=== PATIENT | female | born 1950 | race Caucasian/White ===

== ENCOUNTER 2017-03-30 17:03 | Emergency (ER) | payer OTHER ==
[~2017-03-30] VITALS: Wt 79.4 kg
[~2017-03-30 17:03] MED LIST: ASPIRIN ADULT L81 M1 PO; CIPROFLOXACIN500 MG PO; DULE1ARO PO; DULOXETINE HCL60 MG PO; LIDOCAINE HCL INH; MEDROL DOSEPAK4 MG PO; METOZOLV ODT5 MG PO; MOTRIN800 MG PO; NORFLEX100 MG PO; NOVAPLUS V0.09 MG/Ac INH; OMEPRAZOLE40 MG PO; PREDNISONE20 MG PO; TIZANIDINE HCL2 MG PO; TYLENOL ARTHRI650 MG PO; TYLENOL W/CODEI1 TA2; TYLENOL WITH CO1 TAB; VALSARTAN80 MG PO; VICODIN 500 MG-1 TAB PO; VICODIN ES 7501 TAB PO
[2017-03-30] MEDS ORDERED: CEFADROXIL500 M1 PO (17:37)
== END 2017-03-30 17:53 | disposition home or self-care (01) ==
LOC: ED 17:03
DX: S90.464A Insect bite (nonvenomous), right lesser toe(s), initial encounter (principal); L03.031 Cellulitis of right toe; Z91.041 Radiographic dye allergy status; Z88.6 Allergy status to analgesic agent; Z79.82 Long term (current) use of aspirin; Z79.899 Other long term (current) drug therapy; W57.XXXA Bitten or stung by nonvenomous insect and other nonvenomous arthropods, initial encounter; Y93.9 Activity, unspecified; Y92.9 Unspecified place or not applicable; Y99.9 Unspecified external cause status

== ENCOUNTER 2017-12-25 10:19 | Emergency (ER) | payer OTHER ==
[~2017-12-25] VITALS: Ht 167.6 cm; Wt 79.4 kg
[~2017-12-25 10:19] MED LIST changes: +CEFADROXIL500 M1 PO
[2017-12-25] MEDS ORDERED: LAMISIL AT12 GM T (10:38)
== END 2017-12-25 10:45 | disposition home or self-care (01) ==
LOC: ED 10:19
DX: B37.2 Candidiasis of skin and nail (principal); R03.0 Elevated blood-pressure reading, without diagnosis of hypertension; Z98.890 Other specified postprocedural states; Z90.49 Acquired absence of other specified parts of digestive tract; Z79.899 Other long term (current) drug therapy; Z91.041 Radiographic dye allergy status; Z88.5 Allergy status to narcotic agent; Z79.82 Long term (current) use of aspirin

== ENCOUNTER 2020-08-21 19:36 | Emergency (ER) | payer MEDICARE ==
[~2020-08-21] VITALS: Ht 167.6 cm; Wt 79.4 kg
[~2020-08-21 19:36] MED LIST changes: +LAMISIL AT12 GM T
== END 2020-08-21 22:19 | disposition home or self-care (01) ==
LOC: ED 19:36
DX: S90.32XA Contusion of left foot, initial encounter (principal); I10 Essential (primary) hypertension; F32.9 Major depressive disorder, single episode, unspecified; F41.9 Anxiety disorder, unspecified; K21.9 Gastro-esophageal reflux disease without esophagitis; M79.7 Fibromyalgia; Z98.890 Other specified postprocedural states; Z91.041 Radiographic dye allergy status; Z88.6 Allergy status to analgesic agent; Z88.5 Allergy status to narcotic agent; Z79.899 Other long term (current) drug therapy; Z79.82 Long term (current) use of aspirin; Z04.9 Encounter for examination and observation for unspecified reason; W22.8XXA Striking against or struck by other objects, initial encounter; Y93.89 Activity, other specified; Y92.89 Other specified places as the place of occurrence of the external cause; Y99.8 Other external cause status